=== PATIENT | male | born 1995 | race Caucasian/White ===

== ENCOUNTER 2020-07-06 02:16 | Emergency (ER) | payer BC ==
[~2020-07-06] VITALS: Ht 200.7 cm; Wt 112.4 kg
[2020-07-06] MEDS ORDERED: EPINEPHRINE 1 MG/ML, 1ML ONE (02:45)
[2020-07-06] MEDS ORDERED: EPINEPHRINE 1 MG/ML, 1ML SQ ONE (03:00)
--- NOTE | 2020-07-06 03:01 | NUR ---
PT PLACED ON ALL MONITORS AND MEDICATED PER EMAR. FRIEND AT BEDSIDE.
[2020-07-06 03:14] VITALS: BP 121/65
== END 2020-07-06 04:38 | disposition home or self-care (01) ==
LOC: ED 03:51
DX: R21 Rash and other nonspecific skin eruption (principal); T78.1XXA Other adverse food reactions, not elsewhere classified, initial encounter; R22.0 Localized swelling, mass and lump, head; X58.XXXA Exposure to other specified factors, initial encounter
CPT/HCPCS: 96372; 99283; J0171; J7512